=== PATIENT | female | born 1960 | race Caucasian/White ===

== ENCOUNTER → 2021-07-09 09:52 | Outpatient (CLI) | payer OTHER, SELFPAY ==
[2021-07-09 10:32] LABS: Add Manual Diff / Slide Review NO; Basophils Absolute Auto 0 /uL (0-100); Basophils Percent Auto 0.5 % (0-2); Eosinophils Absolute Auto 200 /uL (0-450); Eosinophils Percent Auto 3.2 % (2-4); Hematocrit 44.9 % (36-46); Hemoglobin 14.8 g/dL (12.0-16.0); Lymphocytes Absolute Auto 2400 /uL (1100-4500); Lymphocytes Percent Auto 42.1 % (25-40); Mean Corpuscular HGB Conc 33.1 % (30-36); Mean Corpuscular Hemoglobin 29.8 PG (26-34); Mean Corpuscular Volume 89.9 fL (80-100); Monocytes Absolute Auto 500 /uL (0-900); Monocytes Percent Auto 8.6 % (3-14); Neutrophils Absolute Auto 2600 /uL (1500-7000); Neutrophils Percent Auto 45.6 % (50-75); Platelet Count 235 X10^3/uL (150-400); Red Blood Cell Count 4.99 X10^6/uL (4.0-5.2); Red Cell Distribution Width 13.9 % (11.6-14.8); White Blood Cell Count 5.7 X10^3/uL (4.5-11.0)
[2021-07-09 11:05] LABS: Alanine Aminotransferase 23 IU/L (<35); Albumin 4.3 g/dL (3.5-5.0); Albumin Globulin Ratio 1.5 (1.0-2.8); Alkaline Phosphatase 41 U/L (38-126); Aspartate Aminotransferase 29 IU/L (14-36); BUN Creatinine Ratio 17.8 (6-22); Bilirubin Total 0.6 mg/dL (0.2-1.3); Blood Urea Nitrogen 16 mg/dL (7-17); Calcium 9.7 mg/dL (8.4-10.2); Carbon Dioxide 35 mmol/L (22-32); Chloride 104 mmol/L (98-107); Cholesterol 218 mg/dL (140-199); Estimated Glomerular Filt Rate > 60.0 mL/min (>60); Globulin 2.8 g/dL (1.7-4.1); Glucose 99 mg/dL (80-110); HDL Cholesterol 67 mg/dL (40-60); HEMOLYSIS < 15 (0-50); LDL Cholesterol Calculated 125 mg/dL (<100); Potassium 5.2 mmol/L (3.4-5.1); Sodium 139 mmol/L (137-145); Total Protein 7.1 g/dL (6.3-8.2); Triglycerides 132 mg/dL (35-150)
[2021-07-09 11:36] LABS: Thyroid Stimulating Hormone 1.16 uIU/mL (0.47-4.68)
== END ==
PROVIDERS: PCP Naturopath; Referring Provider Naturopath; Visit Provider Naturopath
DX: Z00.00 Encounter for general adult medical examination without abnormal findings (principal); E03.9 Hypothyroidism, unspecified
CPT/HCPCS: 36415; 80053; 80061; 84443; 85025

== ENCOUNTER → 2021-07-10 11:19 | Outpatient (CLI) | payer OTHER, SELFPAY ==
[2021-07-11 18:17] LABS: Fecal Immunochemical Test Negative (Negative)
== END ==
PROVIDERS: PCP Naturopath; Referring Provider Naturopath; Visit Provider Naturopath
DX: Z00.00 Encounter for general adult medical examination without abnormal findings (principal); E03.9 Hypothyroidism, unspecified
CPT/HCPCS: 82274

== ENCOUNTER → 2021-09-14 10:19 | Outpatient (CLI) | payer OTHER, SELFPAY ==
--- NOTE | 2021-09-14 | DI.MG.S_ITS ---
BILATERAL DIGITAL SCREENING MAMMOGRAM 3D/2D WITH CAD: 09/14/2021 CLINICAL: Routine screening. Family history of breast cancer. Comparison is made to exams dated: 07/27/2018 mammogram, 05/16/2017 mammogram, and 05/15/2016 mammogram - out side. The tissue of both breasts is predominantly fatty. Current study was also evaluated with a Computer Aided Detection (CAD) system. There are stable benign calcifications in both breasts. No significant masses, calcifications, or other findings are seen in either breast. There has been no significant interval change. IMPRESSION: BENIGN There is no mammographic evidence of malignancy. A 1 year screening mammogram is recommended. This exam was interpreted at Station ID: [id number]. NOTE: For mammograms, a report in lay terms will be sent to the patient. Approximately 15% of breast malignancies will not be visualized mammographically. In the management of a palpable breast mass, a negative mammogram must not discourage biopsy of a clinically suspicious lesion. Electronically Signed By: David Negron acr/penrad:09/14/2021 12:04:06 letter sent: Normal Exam ACR BI-RADS Category 2: Benign Finding(s) 3342F
== END ==
PROVIDERS: PCP Naturopath; Referring Provider Naturopath; Visit Provider Naturopath
DX: Z12.31 Encounter for screening mammogram for malignant neoplasm of breast (principal)
CPT/HCPCS: 77063; 77067

== ENCOUNTER → 2022-09-20 07:26 | Outpatient (CLI) | payer OTHER, SELFPAY ==
[2022-09-20 09:05] LABS: Add Manual Diff / Slide Review NO; Basophils Absolute Auto 0 /uL (0-100); Basophils Percent Auto 0.7 % (0-2); Eosinophils Absolute Auto 300 /uL (0-450); Eosinophils Percent Auto 6.2 % (2-4); Hematocrit 42.5 % (36-46); Hemoglobin 14.3 g/dL (12.0-16.0); Lymphocytes Absolute Auto 1700 /uL (1100-4500); Lymphocytes Percent Auto 35.3 % (25-40); Mean Corpuscular HGB Conc 33.6 % (30-36); Mean Corpuscular Hemoglobin 30.2 PG (26-34); Monocytes Absolute Auto 500 /uL (0-900); Monocytes Percent Auto 9.7 % (3-14); Neutrophils Absolute Auto 2300 /uL (1500-7000); Neutrophils Percent Auto 48.1 % (50-75); Platelet Count 250 X10^3/uL (150-400); Red Blood Cell Count 4.72 X10^6/uL (4.0-5.2); Red Cell Distribution Width 13.5 % (11.6-14.8); White Blood Cell Count 4.9 X10^3/uL (4.5-11.0)
[2022-09-20 10:17] LABS: Alanine Aminotransferase 22 IU/L (<35); Albumin 3.9 g/dL (3.5-5.0); Albumin Globulin Ratio 1.6 (1.0-2.8); Alkaline Phosphatase 44 U/L (38-126); Aspartate Aminotransferase 27 IU/L (14-36); BUN Creatinine Ratio 19.2 (6-22); Bilirubin Total 0.6 mg/dL (0.2-1.3); Blood Urea Nitrogen 15 mg/dL (7-17); Calcium 8.8 mg/dL (8.4-10.2); Carbon Dioxide 31 mmol/L (22-32); Chloride 103 mmol/L (98-107); Cholesterol 174 mg/dL (140-199); Estimated Glomerular Filt Rate > 60 mL/min (>60); Globulin 2.5 g/dL (1.7-4.1); Glucose 85 mg/dL (80-110); HDL Cholesterol 55 mg/dL (40-60); HEMOLYSIS < 15 (0-50); LDL Cholesterol Calculated 97 mg/dL (<100); Potassium 4.2 mmol/L (3.4-5.1); Sodium 139 mmol/L (137-145); Total Protein 6.4 g/dL (6.3-8.2); Triglycerides 110 mg/dL (35-150)
[2022-09-20 10:20] LABS: Free T4, Direct Thyroxine 0.74 ng/dL (0.78-2.19)
[2022-09-21 09:21] LABS: Thyroid Peroxidase Antibodies <9 IU/mL (0-34)
== END ==
PROVIDERS: PCP Naturopath; Referring Provider Naturopath; Visit Provider Naturopath
DX: Z00.00 Encounter for general adult medical examination without abnormal findings (principal); E03.9 Hypothyroidism, unspecified
CPT/HCPCS: 36415; 80053; 80061; 84439; 84443; 84481; 85025; 86376

== ENCOUNTER → 2023-02-08 07:51 | Outpatient (CLI) | payer OTHER, SELFPAY ==
--- NOTE | 2023-02-08 07:54 | DI.RAD.S_ITS ---
PROCEDURE: XR KNEE LT 3V INDICATIONS: Left knee pain TECHNIQUE: 3 views of the knee were acquired. COMPARISON: None. FINDINGS: Bones: No fractures or dislocations. No suspicious bony lesions. Soft tissues: No joint effusion. No suspicious soft tissue calcifications. IMPRESSION: No acute bony abnormality. Dictated by: Dougie Valerio M.D. on 02/08/2023 at 8:44 Approved by: Dougie Valerio M.D. on 02/08/2023 at 8:45
== END ==
PROVIDERS: PCP Naturopath; Referring Provider Physician Assistant; Visit Provider Physician Assistant
DX: M25.562 Pain in left knee (principal)
CPT/HCPCS: 73562

== ENCOUNTER → 2023-02-19 07:08 | Outpatient (CLI) | payer OTHER, SELFPAY ==
--- NOTE | 2023-02-19 | DI.MRI.S_ITS ---
PROCEDURE: MR KNEE LT WO CON INDICATIONS: LEFT KNEE PAIN TECHNIQUE: Noncontrast sagittal PD fast spin echo and T2 fast spin echo with fat saturation, sagittal 3-D FLASH with fat saturation; coronal T1 spin echo and PD fast spin echo with fat saturation, and axial PD fast spin echo with fat saturation through the knee. COMPARISON: [facility], CR, XR KNEE LT 3V, 02/08/2023, 8:01. FINDINGS: Image quality: Excellent. Menisci: There is amorphous high signal intensity within the middle and peripheral thirds of the medial meniscal body and posterior horn, without articular surface extension, consistent with myxoid degeneration. Lateral meniscus is intact. Cruciate ligaments: The anterior and posterior cruciate ligaments appear intact. Medial structures: Moderate T2 signal elevation surrounds the medial collateral ligament. Partial-thickness tearing of the anterior fibers of the medial collateral ligament. Visualized portions of the pes anserinus tendons appear normal. No abnormal bursal fluid. Lateral structures: The lateral collateral ligament, long and short heads of the biceps femoris tendon appear intact. The popliteus tendon appears normal. Iliotibial band appears normal. Anterior structures: The quadriceps and patellar tendons appear intact. Patellar alignment is normal. No femoral trochlear dysplasia or ventral trochlear prominence. No edema in the infrapatellar fat pad. Bones and cartilage: No bone marrow contusions or fractures. Moderate articular cartilage loss diffusely overlies the weight-bearing aspects of the medial femoral condyle and medial tibial plateau. Articular cartilage fibrillation overlies the patellar apex and adjacent portions of the medial and lateral patellar facets. Joint space: There is physiologic knee joint fluid. Trace Reyes's cyst. Normal appearing synovial plicae are incidentally noted. IMPRESSION: 1. No internal derangement. 2. Partial-thickness tear of the medial collateral ligament. Medial collateral ligament strain. 3. Knee joint effusion and trace Reyes's cyst. 4. Medial and patellofemoral compartment articular cartilage loss. Dictated by: Brandie Short M.D. on 02/19/2023 at 10:26 Approved by: Brandie Short M.D. on 02/19/2023 at 10:30
== END ==
PROVIDERS: PCP Naturopath; Referring Provider Physician Assistant; Visit Provider Physician Assistant
DX: S83.412A Sprain of medial collateral ligament of left knee, initial encounter (principal); M25.562 Pain in left knee; M25.462 Effusion, left knee
CPT/HCPCS: 73721

== ENCOUNTER → 2023-08-08 07:36 | Outpatient (CLI) | payer OTHER, SELFPAY ==
[2023-08-08 08:48] LABS: Add Manual Diff / Slide Review NO; Basophils Absolute Auto 0 /uL (0-100); Basophils Percent Auto 0.6 % (0-2); Eosinophils Absolute Auto 300 /uL (0-450); Eosinophils Percent Auto 5.7 % (2-4); Hematocrit 43.3 % (36-46); Hemoglobin 14.5 g/dL (12.0-16.0); Lymphocytes Absolute Auto 2400 /uL (1100-4500); Lymphocytes Percent Auto 42.3 % (25-40); Mean Corpuscular HGB Conc 33.4 % (30-36); Mean Corpuscular Hemoglobin 30.7 PG (26-34); Mean Corpuscular Volume 91.8 fL (80-100); Monocytes Absolute Auto 500 /uL (0-900); Monocytes Percent Auto 9.3 % (3-14); Neutrophils Absolute Auto 2400 /uL (1500-7000); Neutrophils Percent Auto 42.1 % (50-75); Platelet Count 223 X10^3/uL (150-400); Red Blood Cell Count 4.71 X10^6/uL (4.0-5.2); Red Cell Distribution Width 13.7 % (11.6-14.8); White Blood Cell Count 5.7 X10^3/uL (4.5-11.0)
[2023-08-08 08:58] LABS: Alanine Aminotransferase 22 IU/L (<35); Albumin 4.1 g/dL (3.5-5.0); Albumin Globulin Ratio 1.5 (1.0-2.8); Alkaline Phosphatase 40 U/L (38-126); Aspartate Aminotransferase 27 IU/L (14-36); BUN Creatinine Ratio 17.7 (6-22); Bilirubin Total 0.7 mg/dL (0.2-1.3); Blood Urea Nitrogen 14 mg/dL (7-17); Calcium 9.1 mg/dL (8.4-10.2); Carbon Dioxide 29 mmol/L (22-32); Chloride 104 mmol/L (98-107); Cholesterol 189 mg/dL (140-199); Estimated Glomerular Filt Rate > 60 mL/min (>60); Globulin 2.8 g/dL (1.7-4.1); Glucose 95 mg/dL (80-110); HDL Cholesterol 70 mg/dL (40-60); HEMOLYSIS < 15 (0-50); LDL Cholesterol Calculated 102 mg/dL (<100); Potassium 4.7 mmol/L (3.4-5.1); Sodium 141 mmol/L (137-145); Total Protein 6.9 g/dL (6.3-8.2); Triglycerides 84 mg/dL (35-150)
[2023-08-08 09:19] LABS: Free T3, Triiodothyronine Free 3.54 pg/mL (2.77-5.27); Free T4, Direct Thyroxine 0.85 ng/dL (0.78-2.19)
[2023-08-08 09:33] LABS: Thyroid Stimulating Hormone 3.34 uIU/mL (0.47-4.68)
== END ==
PROVIDERS: PCP Naturopath; Referring Provider Naturopath; Visit Provider Naturopath
DX: Z00.00 Encounter for general adult medical examination without abnormal findings (principal); E03.9 Hypothyroidism, unspecified
CPT/HCPCS: 36415; 80053; 80061; 84439; 84443; 84481; 85025

== ENCOUNTER → 2023-08-25 09:20 | Outpatient (CLI) | payer OTHER, SELFPAY ==
--- NOTE | 2023-08-25 09:22 | DI.MG.S_ITS ---
BILATERAL DIGITAL SCREENING MAMMOGRAM 3D/2D WITH CAD: 08/25/2023 CLINICAL: Routine screening. Family history of breast cancer. Comparison is made to exams dated: 09/14/2021 mammogram - [facility], 07/27/2018 mammogram, and 05/16/2017 mammogram - out side. Both breasts are heterogeneously dense, which may obscure small masses (category c / 51-75% glandular tissue). Current study was also evaluated with a Computer Aided Detection (CAD) system. There are benign calcifications in both breasts. No significant masses, calcifications, or other findings are seen in either breast. There has been no significant interval change. IMPRESSION: BENIGN There is no mammographic evidence of malignancy. A 1 year screening mammogram is recommended. Based on the Tyrer Cuzick model (a risk assessment model) the patient's lifetime risk is 8.4% and her 10 year risk is 3.8%. According to the ACR, ACS, and NCCN guidelines, an annual breast MRI exam along with mammogram is recommended if the patient's lifetime risk is 20% or greater. This exam was interpreted at Station ID: [id number]. NOTE: For mammograms, a report in lay terms will be sent to the patient. Approximately 15% of breast malignancies will not be visualized mammographically. In the management of a palpable breast mass, a negative mammogram must not discourage biopsy of a clinically suspicious lesion. Electronically Signed By: Manpreet cason/alvarez:08/25/2023 14:00:20 letter sent: Normal Exam ACR BI-RADS Category 2: Benign Finding(s) 3342F
== END ==
LOC: MAMMO 09:21
PROVIDERS: PCP Naturopath; Referring Provider Naturopath; Visit Provider Naturopath
DX: Z12.31 Encounter for screening mammogram for malignant neoplasm of breast (principal); Z80.3 Family history of malignant neoplasm of breast; R92.333 Mammographic heterogeneous density, bilateral breasts
CPT/HCPCS: 77063; 77067

== ENCOUNTER → 2023-11-25 13:55 | Outpatient (CLI) | payer OTHER, SELFPAY ==
--- NOTE | 2023-11-25 13:56 | DI.RAD.S_ITS ---
PROCEDURE: XR SHOULDER LT MIN 2V INDICATIONS: Left shoulder pain TECHNIQUE: 3 views of the shoulder were acquired. COMPARISON: None. FINDINGS: Bones: No fractures or dislocations. No suspicious bony lesions. Visualized ribs appear intact. Acromioclavicular joint space narrowing with osteophytosis. Coarse calcifications project over the greater tuberosity. Soft tissues: No suspicious soft tissue calcifications. IMPRESSION: No acute bony abnormality. Mild acromioclavicular osteoarthritis. Small calcification projecting lateral to the greater tuberosity, either dystrophic calcification or supraspinatus calcific tendinopathy. Dictated by: Dougie Valerio M.D. on 11/25/2023 at 14:27 Approved by: Dougie Valerio M.D. on 11/25/2023 at 14:28
== END ==
PROVIDERS: PCP Naturopath; Referring Provider Physician Assistant Surgical; Visit Provider Physician Assistant Surgical
DX: M19.012 Primary osteoarthritis, left shoulder (principal); M25.519 Pain in unspecified shoulder
CPT/HCPCS: 73030

== ENCOUNTER → 2023-12-26 13:38 | Outpatient (CLI) | payer OTHER, SELFPAY ==
[2023-12-26 15:00] LABS: Free T3, Triiodothyronine Free 2.54 pg/mL (2.77-5.27); Free T4, Direct Thyroxine 1.08 ng/dL (0.78-2.19)
[2023-12-26 15:14] LABS: Thyroid Stimulating Hormone 0.807 uIU/mL (0.47-4.68)
== END ==
PROVIDERS: PCP Family Medicine; Referring Provider Naturopath; Visit Provider Naturopath
DX: E03.9 Hypothyroidism, unspecified (principal)
CPT/HCPCS: 36415; 84439; 84443; 84481

== ENCOUNTER → 2024-02-23 09:59 | Outpatient (CLI) | payer OTHER, SELFPAY ==
[2024-02-23 12:07] LABS: Free T3, Triiodothyronine Free 2.84 pg/mL (2.77-5.27); Free T4, Direct Thyroxine 0.97 ng/dL (0.78-2.19)
[2024-02-23 12:20] LABS: Thyroid Stimulating Hormone 1.25 uIU/mL (0.47-4.68)
== END ==
LOC: LAB 10:00
PROVIDERS: PCP Family Medicine; Referring Provider Naturopath; Visit Provider Naturopath
DX: E06.3 Autoimmune thyroiditis (principal)
CPT/HCPCS: 36415; 84439; 84443; 84481

== ENCOUNTER → 2024-03-24 07:07 | Outpatient (CLI) | payer BC, SELFPAY ==
--- NOTE | 2024-03-24 07:07 | DI.US.S_ITS ---
PROCEDURE: US ABDOMEN LIMITED INDICATIONS: RUQ/epigastric pain TECHNIQUE: Real-time scanning was performed of the abdominal and retroperitoneal organs, with image documentation. COMPARISON: None. FINDINGS: Liver: Homogeneous echotexture. No evidence of focal mass lesion. No intra hepatic biliary ductal dilatation Gallbladder: Sonolucent without cholelithiasis. No gallbladder wall thickening. No pericholecystic fluid or Gonzalez's sign. Common Bile Duct: 5.7 mm. Pancreas: Unremarkable as visualized IMPRESSION: 1. Unremarkable right upper quadrant ultrasound Approved by: Vargas Olivo M.D. on 03/24/2024 at 12:52
== END ==
PROVIDERS: PCP Family Medicine; Referring Provider Family Medicine; Visit Provider Family Medicine
DX: R10.13 Epigastric pain (principal); R10.11 Right upper quadrant pain
CPT/HCPCS: 76705

== ENCOUNTER 2024-06-15 10:19 | Emergency (ER) | payer BC, SELFPAY ==
[2024-06-15] VITALS (17 sets, daily range): BP systolic 150–176; BP diastolic 72–79; PULSE 44–56; RESP 10–23; TEMP 36.4; O2SAT 96–99; BMI 26.1
--- NOTE | 2024-06-15 10:37 | EKG_ITS ---
[place] [id number] [place] [id number] Test Date: 2024-06-15 Pat Name: Yessenia Anderson Department: Room: Gender: Female Case Management Assistant: MELINDA : 1960 Requested By: Order Number: [id number] Reading MD: Guerrero Floyd Measurements Intervals [place] Rate: 47 P: 40 IL: 144 QRS: -40 QRSD: 96 T: 13 QT: 468 QTc: 414 Interpretive Statements Sinus bradycardia Left axis deviation Moderate voltage criteria for LVH, may be normal variant ( R in aVL , [place] product ) Electronically Signed On 06-15-2024 19:43:23 PST by Guerrero Floyd
--- NOTE | 2024-06-15 10:41 | DI.RAD.S_ITS ---
PROCEDURE: XR CHEST 1V INDICATIONS: chest pain TECHNIQUE: One view of the chest was acquired. COMPARISON: None. FINDINGS: Surgical changes and devices: None. Lungs and pleura: Lungs are clear. No pleural effusions or pneumothorax. Mediastinum: Mediastinal contours appear normal. Heart size is normal. Bones and chest wall: No suspicious bony lesions. Overlying soft tissues appear unremarkable. IMPRESSION: No acute cardiopulmonary abnormality is seen. Dictated by: Lucian Yusuf M.D. on 06/15/2024 at 11:37 Approved by: Lucian Yusuf M.D. on 06/15/2024 at 11:38
[2024-06-15 10:52] LABS: Add Manual Diff / Slide Review NO; Basophils Absolute Auto 0 /uL (0-100); Basophils Percent Auto 0.5 % (0-2); Eosinophils Absolute Auto 100 /uL (0-450); Eosinophils Percent Auto 1.9 % (2-4); Hematocrit 45.8 % (36-46); Hemoglobin 14.9 g/dL (12.0-16.0); Lymphocytes Absolute Auto 2100 /uL (1100-4500); Lymphocytes Percent Auto 31.3 % (25-40); Mean Corpuscular HGB Conc 32.6 % (30-36); Mean Corpuscular Volume 92.1 fL (80-100); Monocytes Absolute Auto 400 /uL (0-900); Monocytes Percent Auto 6.5 % (3-14); Neutrophils Absolute Auto 3900 /uL (1500-7000); Neutrophils Percent Auto 59.8 % (50-75); Platelet Count 211 X10^3/uL (150-400); Red Blood Cell Count 4.97 X10^6/uL (4.0-5.2); Red Cell Distribution Width 14.1 % (11.6-14.8); White Blood Cell Count 6.6 X10^3/uL (4.5-11.0)
[2024-06-15 11:02] LABS: PTT Partial Thromboplastin Tim 31 SECONDS (25.1-36.5)
[2024-06-15 11:08] LABS: Alanine Aminotransferase 20 IU/L (<35); Albumin 4.3 g/dL (3.5-5.0); Albumin Globulin Ratio 1.7 (1.0-2.8); Alkaline Phosphatase 47 U/L (38-126); Aspartate Aminotransferase 31 IU/L (14-36); BUN Creatinine Ratio 18.7 (6-22); Bilirubin Total 0.7 mg/dL (0.2-1.3); Blood Urea Nitrogen 17 mg/dL (7-17); Calcium 9.3 mg/dL (8.4-10.2); Carbon Dioxide 28 mmol/L (22-32); Chloride 105 mmol/L (98-107); Creatine Kinase 37 U/L (30-135); Estimated Glomerular Filt Rate > 60 mL/min (>60); Globulin 2.5 g/dL (1.7-4.1); Glucose 103 mg/dL (80-110); HEMOLYSIS 18 (0-50); Lipase 71 U/L (23-300); Sodium 137 mmol/L (137-145); Total Protein 6.8 g/dL (6.3-8.2)
[2024-06-15 11:19] LABS: NT-proBNP (BNP-Adult 18+) 262 pg/mL (<125); Troponin I < 0.012 ng/mL (0.01-0.034)
--- NOTE | 2024-06-15 11:37 | ED.DIZZY ---
HPI - Dizziness General Chief Complaint: Dizziness Stated Complaint: Vertigo Time Seen by Provider: 06/15/24 11:09 Source: patient Mode of arrival: Ambulatory History of Present Illness HPI Narrative: Patient here with complaints 4 days of constant dizziness. Feels like the environment is pending. With nausea. She has history of migraine headaches and feels the same migraine pattern but low-grade. Take sumatriptan and another new medication that her neurologist has provided her and has been effective. No prior history of stroke. Heart rate noted and this is her baseline resting heart rate of in the 40s. This is not not not new. Denies any chest pain or shortness of breath. Headache is generalized. Related Data Home Medications Medication Instructions Recorded Confirmed buspirone 10 mg tablet 10 mg PO 3XD 02/08/23 03/17/24 escitalopram oxalate 10 mg tablet 10 mg PO DAILY 02/08/23 03/17/24 gabapentin 300 mg capsule 300 mg PO DAILY 02/08/23 03/17/24 sumatriptan succinate 50 mg tablet 50 mg PO 02/08/23 03/17/24 rimegepant 75 mg disintegrating 75 mg PO ONCE PRN 11/25/23 03/17/24 tablet (Nurtec ODT) levothyroxine 88 mcg tablet 88 mcg PO DAILY hypothyroidism 03/17/24 03/17/24 liothyronine 5 mcg tablet 5 mcg PO DAILY Hypothyroidism 03/17/24 03/17/24 Previous Rx's Medication Instructions Recorded fluconazole 150 mg tablet 150 mg PO ONCE #1 tab 03/16/24 meclizine 25 mg tablet 25 mg PO TID PRN dizziness #21 tabs 06/15/24 ondansetron 4 mg disintegrating 4 mg PO Q8H PRN nausea and 06/15/24 tablet vomiting #20 tabs Allergies Allergy/AdvReac Type Severity Reaction Status Date / Time sertraline Allergy Intermediate Hives Verified 03/17/24 10:44 trazadone AdvReac Intermediate sun Uncoded 03/17/24 10:44 sensitivity Review of Systems Review of Systems Narrative: GENERAL: Negative chills, fatigue, malaise, fever, sweats. HEENT: Negative sinus pain, ear pain, sore throat RESPIRATORY: Negative dyspnea, cough CARDIOVASCULAR: Negative chest pain, palpitations GASTROINTESTINAL: Negative nausea, vomiting, abdominal pain : Negative dysuria, frequency, hematuria MUSCULOSKELETAL: Negative muscle or bony pain SKIN: Negative rash, skin lesions NEUROLOGIC: Negative weakness, numbness, positive headache positive dizziness ROS Unobtainable: All systems reviewed & are unremarkable except as noted in HPI and below Patient History Social History Smoking Status: Former smoker Smoking Status: Former smoker Exam Narrative Exam Narrative: GENERAL: in no distress, not toxic not dyspneic HEAD: Normocephalic. EYES: Pupils equal round ENT: Mucous membranes moist. NECK: Trachea midline. CARDIOVASCULAR: Regular rate and rhythm RESPIRATORY: Clear to auscultation. Breath sounds equal bilaterally. No wheezes, rales, or rhonchi. GASTROINTESTINAL: Abdomen soft, non-tender EXTREMITIES: No gross deformities. BACK: No flank tenderness. NEURO: AOx4. No nystagmus of the eyes. Patient has no dizziness with tracking with eyes only but any attempts to move her head or neck left and right causes dizziness. Clear speech no facial droop light touch intact bilateral face hands and legs. 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 SKIN: Warm and dry PSYCH: Not anxious, is cooperative Initial Vital Signs Initial Vital Signs: Vital Signs Temperature 97.6 F 06/15/24 10:36 Pulse Rate 56 L 06/15/24 10:36 Respiratory Rate 16 06/15/24 10:36 Blood Pressure 176/79 H 06/15/24 10:36 Pulse Oximetry 98 06/15/24 10:36 Oxygen Delivery Method Room Air 06/15/24 10:36 Course Orders Ordered: Discontinued Medications Aspirin (Aspirin 81 Mg Chew Tab) 324 mg PO NOW ONE Stop: 06/15/24 10:42 Last Admin: 06/15/24 11:54 Dose: Not Given Documented By: EDGAR Sodium Chloride (Normal Saline 0.9%) 1,000 mls @ 1,000 mls/hr IV BOLUS ONE Stop: 06/15/24 12:47 Last Infusion: 06/15/24 14:14 Dose: Infused Documented By: Admin: 06/15/24 12:23 Dose: 1,000 mls/hr Documented By: EDGAR Ketorolac Tromethamine (Ketorolac 30 Mg/Ml Vial) 15 mg IV NOW ONE Stop: 06/15/24 11:49 Last Admin: 06/15/24 12:01 Dose: 15 mg Documented By: EDGAR Meclizine HCl (Meclizine Hcl 12.5 Mg Tablet) 50 mg PO NOW ONE Stop: 06/15/24 11:49 Last Admin: 06/15/24 11:57 Dose: 50 mg Documented By: EDGAR Ondansetron HCl (Ondansetron 4 Mg/2 Ml Inj) 4 mg IV NOW ONE Stop: 06/15/24 11:49 Last Admin: 06/15/24 12:01 Dose: 4 mg Documented By: EDGAR Vital Signs Vital signs: Vital Signs - 8 hr 06/15/24 10:36 06/15/24 10:38 06/15/24 11:00 Temperature 97.6 F Pulse Rate 56 L 46 L 45 L Respiratory Rate 16 18 15 Blood Pressure 176/79 H Pulse Oximetry 98 96 Oxygen Delivery Method Room Air 06/15/24 11:01 06/15/24 11:01 06/15/24 11:34 Temperature Pulse Rate 44 L 49 L Respiratory Rate 14 Blood Pressure 163/72 H Pulse Oximetry 97 96 Oxygen Delivery Method Room Air 06/15/24 11:35 06/15/24 11:35 06/15/24 12:00 Temperature Pulse Rate 46 L 54 L Respiratory Rate 15 Blood Pressure 172/76 H Pulse Oximetry 99 98 Oxygen Delivery Method 06/15/24 12:21 06/15/24 12:21 06/15/24 12:30 Temperature Pulse Rate 45 L Respiratory Rate 10 L Blood Pressure 154/72 H 155/75 H Pulse Oximetry 99 Oxygen Delivery Method 06/15/24 12:30 06/15/24 13:00 06/15/24 13:00 Temperature Pulse Rate 45 L 51 L Respiratory Rate 17 Blood Pressure 170/78 H Pulse Oximetry 97 97 Oxygen Delivery Method 06/15/24 13:30 06/15/24 13:31 06/15/24 13:31 Temperature Pulse Rate 52 L 55 L Respiratory Rate 16 23 Blood Pressure 150/72 H Pulse Oximetry 96 98 Oxygen Delivery Method 06/15/24 14:00 06/15/24 14:30 06/15/24 17:45 Temperature Pulse Rate 55 L 54 L Respiratory Rate Blood Pressure 160/72 H Pulse Oximetry 96 Oxygen Delivery Method 06/15/24 17:46 Temperature Pulse Rate 51 L Respiratory Rate 16 Blood Pressure Pulse Oximetry 96 Oxygen Delivery Method Room Air MDM - Dizziness Lab Data 06/15/24 10:40 06/15/24 10:40 Labs: Lab Results 06/15/24 Range/Units 10:40 WBC 6.6 (4.5-11.0) X10^3/uL RBC 4.97 (4.0-5.2) X10^6/uL Hgb 14.9 (12.0-16.0) g/dL Hct 45.8 (36-46) % MCV 92.1 (80-100) fL MCH 30.0 (26-34) PG MCHC 32.6 (30-36) % RDW 14.1 (11.6-14.8) % Plt Count 211 (150-400) X10^3/uL Neut % (Auto) 59.8 (50-75) % Lymph % (Auto) 31.3 (25-40) % [place] % (Auto) 6.5 (3-14) % Eos % (Auto) 1.9 L (2-4) % Baso % (Auto) 0.5 (0-2) % Neut # (Auto) 3900 (9313-4233) /uL Lymph # (Auto) 2100 (0441-7852) /uL [place] # (Auto) 400 (0-900) /uL Eos # (Auto) 100 (0-450) /uL Baso # (Auto) 0 (0-100) /uL PT 11.0 (9.4-12.5) SECONDS INR 1.0 (0.9-1.3) APTT 31 (25.1-36.5) SECONDS Sodium 137 (137-145) mmol/L Potassium 4.0 (3.4-5.1) mmol/L Chloride 105 (98-107) mmol/L Carbon Dioxide 28 (22-32) mmol/L BUN 17 (7-17) mg/dL Creatinine 0.91 (0.52-1.04) mg/dL Estimated GFR > 60 (>60) mL/min BUN/Creatinine Ratio 18.7 (6-22) Glucose 103 (80-110) mg/dL Calcium 9.3 (8.4-10.2) mg/dL Magnesium 2.0 (1.6-2.3) mg/dL Total Bilirubin 0.7 (0.2-1.3) mg/dL AST 31 (14-36) IU/L ALT 20 (<35) IU/L Alkaline Phosphatase 47 (38-126) U/L Total Creatine Kinase 37 (30-135) U/L Troponin I < 0.012 (0.01-0.034) ng/mL NT-Pro-B Natriuret Pep 262 H (<125) pg/mL Total Protein 6.8 (6.3-8.2) g/dL Albumin 4.3 (3.5-5.0) g/dL Globulin 2.5 (1.7-4.1) g/dL Albumin/Globulin Ratio 1.7 (1.0-2.8) Lipase 71 (23-300) U/L Urine Dip Bedside Urine Glucose Negative Bedside Urine Bilirubin - Negative Bedside Urine Ketone - Negative Urine Specific [place] 1.010 Bedside Urine Occult Blood - Negative Bedside Urine pH 7.0 Bedside Urine Protein - Negative Bedside Urine Urobilinogen - Negative Bedside Urine Nitrite - Negative Bedside Urine Leukocytes - Negative Esterase Imaging Data CT scan - head: Radiologist's Impression: No acute finding CTA - brain/neck: Radiologist's Impression: No acute finding MDM Narrative Medical decision making narrative: Patient here with complaints 4 days of constant dizziness. Feels like the environment is pending. With nausea. She has history of migraine headaches and feels the same migraine pattern but low-grade. Take sumatriptan and another new medication that her neurologist has provided her and has been effective. No prior history of stroke. Heart rate noted and this is her baseline resting heart rate of in the 40s. This is not not not new. Denies any chest pain or shortness of breath. Headache is generalized. After history and exam CBC CMP CT head CT angiogram head and neck, patient and understand we will have to send to [place] for CT and come back. Normal saline Toradol Antivert Zofran, EKG. Patient has no chest complaints MDM Medical records reviewed: No recent visit for this complaint Differential considered: Includes but not limited to TIA vertigo complex migraine headache stroke Lab Test results independently reviewed as above. Pertinent findings: WBC 6.6 hemoglobin 14.9 sodium 137 potassium 4.0 BUN 17 creatinine 0.91 troponin less than 0.012 BNP 262 glucose 103 Independently reviewed EKG sinus bradycardia rate [address] elevation or depression Imaging studies independently reviewed: CT head CT angiogram head and neck done at [facility] no acute finding. Please see printed reports. Consultations: None indicated. Treatments: Toradol Zofran Antivert normal saline Re-evaluations: 6:17 p.m.. Patient feeling much better. Able to rotate her head left and right without any dizziness. She could not do this before. Headache 09/06. She has not concerned. This is typical for migraine headache. She does not want anything more for her headache. She has home medications for her migraine headache. Return precautions reviewed with and her. They desire discharge home. Discussion: Appropriate for discharge home exam is reassuring. Return precautions reviewed with patient and . Patient improved with conservative treatment. Prescription for Antivert and Zofran provided. Not toxic at discharge. They desire discharge home. Diagnosis: Vertigo Discharge Plan Departure Patient Disposition: Home Clinical Impression: Vertigo Headache, migraine Qualifiers: Migraine type: unspecified Status migrainosus presence: without status migrainosus Intractability: not intractable Qualified Code(s): G43.909 - Migraine, unspecified, not intractable, without status migrainosus Instructions: DI for Migraine, DI for Vertigo Activity Restrictions/Additional Instructions: I am glad you are feeling better. Your exam and laboratory studies and imaging studies are reassuring. You likely developed vertigo. Prescription for nausea and vertigo has been printed for you. Please see family doctor this week for re-evaluation. May continue home medications. Return if worse if any questions or concerns. Prescriptions: New meclizine 25 mg tablet 25 mg PO TID PRN (Reason: dizziness) Qty: 21 0RF ondansetron 4 mg tablet,disintegrating 4 mg PO Q8H PRN (Reason: nausea and vomiting) Qty: 20 0RF No Action Nurtec ODT 75 mg tablet,disintegrating 75 mg PO ONCE PRN Rx Instructions: as a single dose escitalopram oxalate 10 mg tablet 10 mg PO DAILY gabapentin 300 mg capsule 300 mg PO DAILY buspirone 10 mg tablet 10 mg PO 3XD sumatriptan succinate 50 mg tablet 50 mg PO fluconazole 150 mg tablet 150 mg PO ONCE Qty: 1 0RF Rx Instructions: as a single dose levothyroxine 88 mcg tablet 88 mcg PO DAILY Patient Comments: I'm taking this along with 2.5 mcg of liothyronine liothyronine 5 mcg tablet 5 mcg PO DAILY Patient Comments: I am only taking 2.5 mcg along with levothyroxine Referrals: Elaine Hatfield DO [Primary Care Provider] - Stand Alone Forms: Patient Portal/API/Survey
[2024-06-15] MEDS: MECLIZINE HCL 12.5 MG TABLET 50 MG PO (11:57)
[2024-06-15] MEDS: KETOROLAC 30 MG/ML VIAL 15 MG IV (12:01)
[2024-06-15] MEDS: ONDANSETRON 4 MG/2 ML INJ IV (12:01)
[2024-06-15] MEDS: SODIUM CHLORIDE 0.9% 1,000 ML 1000 ML IV (12:23)
--- NOTE | 2024-06-15 15:03 | PC.NURSE ---
1432--patient was picked up by [facility] ambulance to be taken to [facility] for CT head scan, they will be returned after the scan is done
--- NOTE | 2024-06-15 15:07 | PC.NURSE ---
Patients assessment is deferred until [facility]
--- NOTE | 2024-06-15 15:08 | PC.NURSE ---
assessment deferred see other note
--- NOTE | 2024-06-15 17:43 | PC.NURSE ---
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 Report given from EMT Valeriy. Pt is able to ambulate to bathroom. Steady on feet.
== END 2024-06-15 18:34 | disposition home or self-care (01) ==
PROVIDERS: Emergency Provider Emergency Medicine; PCP Family Medicine
DX: R42 Dizziness and giddiness (principal); G43.909 Migraine, unspecified, not intractable, without status migrainosus; R00.1 Bradycardia, unspecified; R07.9 Chest pain, unspecified
CPT/HCPCS: 36415; 71045; 80053; 81003; 82550; 83690; 83735; 83880; 84484; 85025; 85610; 85730; 93005; 96361; 96374; 96375; 99284; J1885; J2405

== ENCOUNTER → 2024-11-02 08:32 | Outpatient (CLI) | payer BC, SELFPAY ==
[2024-11-02 09:15] LABS: Add Manual Diff / Slide Review NO; Basophils Absolute Auto 0 /uL (0-100); Basophils Percent Auto 0.6 % (0-2); Eosinophils Absolute Auto 200 /uL (0-450); Eosinophils Percent Auto 3.2 % (2-4); Hematocrit 42.4 % (36-46); Hemoglobin 14.2 g/dL (12.0-16.0); Lymphocytes Absolute Auto 1800 /uL (1100-4500); Lymphocytes Percent Auto 36.9 % (25-40); Mean Corpuscular HGB Conc 33.4 % (30-36); Mean Corpuscular Hemoglobin 31.1 PG (26-34); Mean Corpuscular Volume 93.2 fL (80-100); Monocytes Absolute Auto 400 /uL (0-900); Monocytes Percent Auto 8.7 % (3-14); Neutrophils Absolute Auto 2500 /uL (1500-7000); Neutrophils Percent Auto 50.6 % (50-75); Platelet Count 188 X10^3/uL (150-400); Red Blood Cell Count 4.55 X10^6/uL (4.0-5.2); Red Cell Distribution Width 13.6 % (11.6-14.8); White Blood Cell Count 4.9 X10^3/uL (4.5-11.0)
[2024-11-02 09:41] LABS: Alanine Aminotransferase 18 IU/L (<35); Albumin 4.1 g/dL (3.5-5.0); Albumin Globulin Ratio 1.8 (1.0-2.8); Alkaline Phosphatase 42 U/L (38-126); Aspartate Aminotransferase 27 IU/L (14-36); Bilirubin Total 0.6 mg/dL (0.2-1.3); Blood Urea Nitrogen 15 mg/dL (7-17); Carbon Dioxide 29 mmol/L (22-32); Chloride 106 mmol/L (98-107); Cholesterol 198 mg/dL (140-199); Estimated Glomerular Filt Rate > 60 mL/min (>60); Globulin 2.3 g/dL (1.7-4.1); Glucose 95 mg/dL (70-99); HDL Cholesterol 61 mg/dL (40-60); HEMOLYSIS < 15 (0-50); LDL Cholesterol Calculated 117 mg/dL (<100); Potassium 4.5 mmol/L (3.4-5.1); Sodium 138 mmol/L (137-145); Total Protein 6.4 g/dL (6.3-8.2); Triglycerides 99 mg/dL (35-150)
[2024-11-02 09:59] LABS: Free T3, Triiodothyronine Free 3.43 pg/mL (2.77-5.27); Free T4, Direct Thyroxine 1.26 ng/dL (0.78-2.19)
[2024-11-02 10:12] LABS: Thyroid Stimulating Hormone 0.145 uIU/mL (0.47-4.68)
== END ==
LOC: LAB 08:33
PROVIDERS: PCP Family Medicine; Referring Provider Naturopath; Visit Provider Naturopath
DX: Z00.00 Encounter for general adult medical examination without abnormal findings (principal); E03.9 Hypothyroidism, unspecified
CPT/HCPCS: 36415; 80053; 80061; 84439; 84443; 84481; 85025

== ENCOUNTER → 2024-11-16 07:33 | Outpatient (CLI) | payer BC, SELFPAY ==
--- NOTE | 2024-11-16 07:34 | DI.RAD.S_ITS ---
PROCEDURE: XR SHOULDER LT MIN 2V INDICATIONS: left shoulder pain TECHNIQUE: Three views of the left shoulder were acquired. COMPARISON: [facility], , XR SHOULDER LT MIN 2V, 11/25/2023, 13:03. FINDINGS: Bones: There are no osseous abnormalities. Acromioclavicular and glenohumeral joints: Moderate acromioclavicular degeneration appreciated. Glenohumeral joint is normal. Soft tissues: No soft tissue swelling, calcification or mass. IMPRESSION: Moderate acromioclavicular degeneration Dictated by: Zak Denton M.D. on 11/16/2024 at 10:03 Approved by: Zak Denton M.D. on 11/16/2024 at 10:04
== END ==
PROVIDERS: PCP Family Medicine; Referring Provider Orthopaedic Surgery; Visit Provider Orthopaedic Surgery
DX: M25.512 Pain in left shoulder (principal); M19.012 Primary osteoarthritis, left shoulder
CPT/HCPCS: 73030